=== PATIENT | male | born 1945 | race Two or more races ===

== ENCOUNTER 2024-03-16 17:33 | Emergency (ER) | payer OTHER ==
[2024-03-16] MEDS ORDERED: Acetaminophen 500 MG TAB ONE (18:26)
[2024-03-16 18:49] LABS: Hematocrit 43.5 % (42.0-52.0); Hemoglobin 14.3 g/dL (14.0-18.0); Mean Corpuscular HGB CONC 32.9 g/dL (32.0-36.0); Mean Corpuscular Hemoglobin 31.5 pg (27.0-31.0); Mean Corpuscular Volume 95.9 fl (78.0-98.0); Mean Platelet Volume 8.7 fL (7.4-10.4); Platelet Count 194 10x3/uL (130-400); RBC Distribution Width 11.8 % (11.5-14.5); Red Blood Cell (RBC) Count 4.54 mill/uL (4.70-6.10); White Blood Cell (WBC) Count 11.4 10x3/uL (4.8-10.8)
[2024-03-16 18:52] LABS: ALT (SGPT) 118 U/L (8-55); AST (SGOT) 136 U/L (5-34); Alkaline Phosphatase 70 U/L (40-110); Anion Gap 15 mmol/L (10-20); BUN (Urea Nitrogen) 23 mg/dL (8.4-25.7); Bilirubin, Total 0.8 mg/dL (0.2-1.2); Calc. Creatinine Clearance 0 mL/min (70-130); Calcium 10.2 mg/dL (7.8-10.44); Carbon Dioxide 25 mmol/L (23-31); Chloride 104 mmol/L (98-107); Estimated GFR 65; Glucose 108 mg/dL (83-110); Potassium 4.7 mmol/L (3.5-5.1); Sodium 139 mmol/L (136-145)
[2024-03-16 19:10] LABS: Band 5 % (5-11); Eosinophils 3 % (0-10); Lymphocytes 3 % (21-51); Manual Diff?? YES; Monocytes 6 % (0-10); Neutrophil 79 % (42-75); Reactive Lymphocytes 4 % (0-10)
[2024-03-16 19:11] LABS: MDiff Complete? YES; Platelet Adequacy Comment Appears Adequate; RBC Morph Comment Within Normal Limits
== END 2024-03-16 19:29 | disposition home or self-care (01) ==
LOC: MADERS 17:33
DX: S50.02XA Contusion of left elbow, initial encounter (principal); R07.89 Other chest pain; V89.2XXA Person injured in unspecified motor-vehicle accident, traffic, initial encounter
CPT/HCPCS: 36415; 71046; 80053; 85025; 93005